=== PATIENT | male | born 1930 | race Caucasian/White ===

== ENCOUNTER → 2016-08-25 | Outpatient (CLI) | payer OTHER, BC ==
[~2016-08-25] VITALS: Ht 182.9 cm; Wt 76.2 kg
[~2016-08-25] MED LIST: ADVIL PM CAPLE1 EACH PO; ASPIR 8181 MG PO; ATIVAN1 MG PO; CARDIO OMEGA B1 EACH PO; CARVEDILOL12.5 MG PO; HYDROCODONE-AP1 EAC6 PO; HYTRIN 5 M5 MG/1 CAP PO; IBUPROFEN 200200 M1 PO; LIPITOR 20 MG T20 M1 PO; NEURONTIN 300300 M1 PO; NEURONTIN100 MG PO; NORTRIPTYLINE H10 M1 PO; OMEPRAZOLE 20 M20 M1 PO; PREDNISONE 5 MG5 M1 PO; TESTOSTERO200 MG/1 M IM; VITAMIN D1000 UNI1 PO
--- NOTE | ~2016-08-25 | HPC ---
[facility] [place] [address] PAIN MANAGEMENT CONSULTATION Name: BETZYLUCIA Adams Room #: REG [facility].#: [id number] Admission: 08/25/16 Attend Phys: Alejandro George MD Discharge: Date of : 34 Report #: [id number] THIS REPORT FOR: //name// CC: John George DATE OF SERVICE: 08/25/2016 Follow up visit for postherpetic neuralgia, left T7-T8 distribution. The patient returns to pain clinic today after having nearly 2 weeks pain-free interval following an epidural steroid injection performed very carefully at the level of T7 and T8. We counted carefully to identify that location and the injection was performed paramedian. The result of that good response and with his pain returning, although not quite the same degree, he is here today and we have decided to repeat another injection. Pain score originally was 7/10 down to a 4. He has allodynia and discomfort along the left side following the dermatome as described. I placed him on amitriptyline, he was unable to tolerate it due to anticholinergic side effects, it has been discontinued. He continues to take gabapentin at bedtime 300 mg, we discussed going to taking 100 mg tablet at morning and noon if needed and see if he tolerates it during the day. This small amount may be tolerated even in octogenarian. PHYSICAL EXAMINATION: Pleasant, alert and oriented. Blood pressure 116/82, heart rate 71, BMI is 22.8. Chest wall reveals persistent discomfort, mild allodynia in the distribution of T7 through approximately T10, discrete involving only the left side. IMPRESSION: Postherpetic neuralgia, left T7-T10 distribution, worst T7 through T9. PROCEDURE: T7-T8 thoracic epidural under fluoroscopic guidance. DESCRIPTION OF PROCEDURE: was taken to fluoroscopic suite, placed in prone position. Skin was prepped with ChloraPrep. Skin anesthetized once again over T7-T8 and I very carefully advanced the Tuohy epidural needle into the epidural space just to the left of midline with loss of resistance. No blood or CSF was aspirated. I injected the a 0.25 mL of Omnipaque demonstrating excellent epidural spread once again. Bilateral spread was noted with this injection. This was then followed by 2 mL of 0.25% bupivacaine mixed with 40 mg of triamcinolone. Needle was removed and he tolerated the procedure well [address] [address] PAIN MANAGEMENT CONSULTATION Name: LUCIA BO [id number] Admission: 08/25/16 Attend Phys: Alejandro George MD Discharge: Date of : 34 Report #: [id number] without complication. He was observed in the pain clinic for 45 minutes and discharged with a followup visit scheduled in 1 month. <ELECTRONICALLY SIGNED> By: Alejandro George MD 09/18/16 1130 [id number] Alejandro George MD /bert
[2016-08-25 10:10] VITALS: BP 116/82
== END | disposition home or self-care (01) ==
LOC: PAIN 07:15
DX: B02.29 Other postherpetic nervous system involvement (principal)

== ENCOUNTER → 2016-12-16 | Outpatient (CLI) | payer OTHER ==
[~2016-12-16] VITALS: Ht 185.4 cm; Wt 71.0 kg
[~2016-12-16] MED LIST changes: +GRALISE300 MG PO
--- NOTE | ~2016-12-16 | HPC ---
[facility] [address] [place] [address] PAIN MANAGEMENT CONSULTATION Name: LUCIA BO Angie Room #: REG [facility] Rudy.#: [id number] Admission: 12/16/16 Attend Phys: Alejandro George MD Discharge: Date of : 34 Report #: [id number] THIS REPORT FOR: //name// CC: John George DATE OF SERVICE: 12/16/2016 Followup visit for postherpetic neuralgia. HISTORY OF PRESENT ILLNESS: The patient returns to pain clinic today reporting minimal duration of improvement following his last epidural injection. He was very pleased with his first injection, but really even that injection was only about 2 weeks before the pain returned to baseline. That raises some questions about next steps in therapy. We can always repeat another epidural injection. His initial response was good. However, my experience is the duration of response generally does not alerter a lot by sequential injections. You generally will get what you get. It remains an option, but I thought we would consider other treatments considerations. He has been taking some gabapentin titrating dose and up to 300 mg, which he takes in the evening. Generally, it works. He gets a pain response and it reduces his neuropathic pain, but he does not like to take it due to the daytime side effects. He is able to tolerate smaller amounts that I am not sure that they are therapeutic. I offered 2 alternatives. One would be to use 200 mg at slightly lower dose, but take it more frequently, perhaps q.8h. which would provide him around the clock benefits from the anterior seizure medication. The other option would be to trial Gralise 300 mg to 600 mg once a day at supper time. There are certainly some advantages in this. The around the clock blood levels of the gabapentin have been helpful for many of our patients who have been able to take it successfully; however, the cost of the medication can be prohibitive. Fortunately, we has a nice sample packed that we can use to determine whether benefits are worth the cost and he can assess the cost through his particular drug plan. If this is not effective, then I would consider repeating injections, although I would like to try selective nerve root blocks instead of an epidural injection. This would be performed injecting just outside the neural foramen under fluoroscopic guidance. At times, this may provide an additional superintendent terminal benefit for the properly chosen patient. Makes more sense for me to do that, I believe rather than simply repeat injection, which we have now performed twice with short duration. Time of consultation was roughly 15 minutes. He was discharged[place] [address] PAIN MANAGEMENT CONSULTATION Name: LUCIA BO Room #: REG [facility].#: [id number] Admission: 12/16/16 Attend Phys: Alejandro George MD Discharge: Date of : 32 Report #: [id number] followup in about a month and he will call the clinic for any problems with his medications regarding side effects or cost. By: [id number] MD arian Javed
[2016-12-16 10:16] VITALS: BP 108/68
== END | disposition home or self-care (01) ==
LOC: PAIN 07:11
DX: G62.9 Polyneuropathy, unspecified (principal)

== ENCOUNTER → 2017-01-13 | Outpatient (CLI) | payer OTHER ==
[~2017-01-13] VITALS: Ht 182.9 cm; Wt 69.9 kg
--- NOTE | ~2017-01-13 | HPC ---
[facility] [place] [address] PAIN MANAGEMENT CONSULTATION Name: HUMERAJoshuaLUCIA W Room #: REG [facility] Alexys.#: [id number] Admission: 01/13/17 Attend Phys: Alejandro George MD Discharge: Date of : 34 Report #: [id number] THIS REPORT FOR: //name// CC: DANETTE George DATE OF SERVICE: 01/13/2017 Followup visit for postherpetic neuralgia. The patient comes to pain clinic today in followup with an interesting story. I placed him on Gralise 300 mg in the evening for his neuralgia. He was not tolerating gabapentin well, but we felt that it might be beneficial with the slow release. He was instructed that he can increase his dose to 600. He took it through the entire pack, but never increased this dose beyond 600. He was reluctant to do so. I think he would have tolerated it well given the slow release, but he instead decided to take 300 mg of regular gabapentin at bedtime and 100 during the day. Even this caused daytime lethargy and confusion, so after about 4 or 5 days of taking the gabapentin in that fashion, he decided to discontinue it. That is when something unusual happened. His pain went away. It was after he discontinued the medication that his pain seemed to subside. We speculated the mechanism of this response for some time and then provided his assessment that it was divine intervention. Lots of prayer has been going on for him and about his pain. good an answer as I can come up with. For the amount we have decided that we will accept this good response and I have given him another sample pack of Gralise in case the pain returns and he can reinitiate it. IMPRESSION: 1. Postherpetic neuralgia, T7-T8 distribution. 2. Management of high risk medication. 3. 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 PLAN: Follow up as needed. <ELECTRONICALLY SIGNED> By: Alejandro George MD 01/13/17 1714 1132 [id number] Alejandro George MD /nt
[2017-01-13 10:16] VITALS: BP 112/66
== END | disposition home or self-care (01) ==
LOC: PAIN 06:55
DX: B02.29 Other postherpetic nervous system involvement (principal); H35.30 Unspecified macular degeneration

== ENCOUNTER → 2017-05-19 | Outpatient (CLI) | payer OTHER ==
[~2017-05-19] VITALS: Ht 182.9 cm; Wt 72.6 kg
--- NOTE | ~2017-05-19 | HPC ---
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 The patient is here to discuss his ongoing pain. Today, he reports his pain at a 2, but often his pain is severe, particularly in the low back as a new symptom. This pain is generally severe in the morning and when he gets out. We talked about factors that aggravated his pain. He is 86 years old. 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 He says that when he gets off his tractor, his back hurts. He also notes that when he is very active, he has pain across the lumbosacral segment. We discussed this as in normal expected event for an 86-year-old who remains active. Not that we will not try and help him with his symptoms, but it is certainly not unusual to have some pain. I brought out a skeleton and another model to just demonstrate the facet joints, which are the likely an underlying cause. He has facet arthropathy I believe, and this then shifts to myofascial pain as well and muscle spasm and tension in the low back. This musculoskeletal low back pain is fairly typical. I treated him originally for postherpetic neuralgia, and he had injections, the first of which was quite helpful. The second one did not help quite as much. The epidural injections were reviewed and appear to be spot on. Because of lack of duration of response, we decided not to further inject the postherpetic neuralgia. I have recommended for him the use of a tricyclic antidepressant, which the literature has supported for this, and we also discussed gabapentin at some length. Currently, he is off both of those medicines. PHYSICAL EXAMINATION: He is a sharp 86-year-old. He moves from sitting to standing position independently, does not use a cane or walking device. VITAL SIGNS: His blood pressure is 123/76, heart rate 60, respirations 16. His BMI is 21.7. MUSCULOSKELETAL: He was able to bend forward and extend his back with good range of motion, but back extension increases the lumbosacral segment pain. Pain is locally tender across the lumbosacral segment. There is no sacroiliac joint tenderness. He has no radiculopathy whatsoever. X-rays available, none. IMPRESSION: Low back pain without radiculopathy in an 86-year-old. This is [address] [address] PAIN MANAGEMENT CONSULTATION Name: LUCIA BO Room #: REG [facility] Cristina#: [id number] Admission: 05/19/17 Attend Phys: Alejandro George MD Discharge: Date of : 34 Report #: [id number] likely spondylitic with myofascial and skeletal pain. RECOMMENDATIONS: We talked about exercise, and we have talked about nonsteroidal anti-inflammatory drugs. These of course are the main stay of arthritis pain and are recommended. He has been taking ibuprofen with minimal improvement. We talked about gabapentin, which likely will not help the lumbosacral pain given his lack of neuropathic symptoms. We did discuss the use of hydrocodone. He has used this in the past with some success. He does not over utilize it, has very few side effects, not even constipation and is grateful for the relief that he gets, particularly after activities. I think using some hydrocodone small doses is a reasonable option, and we discussed the opioid crisis in all of the given to opioids, he states. I believe that they can be used cautiously and carefully for this pain, and I am hopeful that he will use it cautiously and safeguard it in his home. Only 30 tablets were provided. We will provide more if he needs it and if it is useful. No injections are recommended at this time, although lumbar facet injections certainly are an option. He is not interested in injections today. Time spent with the patient is about 30 minutes. By: 1111 [id number] Alejandro George MD /nt
[2017-05-19 10:17] VITALS: BP 123/76
== END | disposition home or self-care (01) ==
LOC: PAIN 06:54
DX: M54.5 Low back pain (principal); B02.29 Other postherpetic nervous system involvement; M17.11 Unilateral primary osteoarthritis, right knee; M79.1 Myalgia; Z88.2 Allergy status to sulfonamides; Z88.1 Allergy status to other antibiotic agents; Z98.890 Other specified postprocedural states; Z79.82 Long term (current) use of aspirin; Z79.899 Other long term (current) drug therapy

== ENCOUNTER → 2019-09-17 | Outpatient (CLI) | payer OTHER ==
[~2019-09-17] MED LIST changes: +TYLENOL325 M1 PO
== END ==
LOC: SJCVC 11:23
DX: R94.31 Abnormal electrocardiogram [ECG] [EKG] (principal); I44.4 Left anterior fascicular block; R00.1 Bradycardia, unspecified; R93.1 Abnormal findings on diagnostic imaging of heart and coronary circulation; I10 Essential (primary) hypertension; E78.5 Hyperlipidemia, unspecified; M31.6 Other giant cell arteritis; K21.9 Gastro-esophageal reflux disease without esophagitis; Z90.49 Acquired absence of other specified parts of digestive tract; Z87.891 Personal history of nicotine dependence; Z72.89 Other problems related to lifestyle; Z79.899 Other long term (current) drug therapy; Z88.1 Allergy status to other antibiotic agents; Z88.2 Allergy status to sulfonamides

== ENCOUNTER → 2020-03-17 | Outpatient (CLI) | payer OTHER | LOC: SJCVC 10:43 | PROVIDERS: ATTEND Internal Medicine | DX: R94.31 Abnormal electrocardiogram [ECG] [EKG] (principal); I44.0 Atrioventricular block, first degree; I44.4 Left anterior fascicular block; R93.1 Abnormal findings on diagnostic imaging of heart and coronary circulation; I10 Essential (primary) hypertension; E78.5 Hyperlipidemia, unspecified; M31.6 Other giant cell arteritis ==